=== PATIENT | female | born 1950 | race Caucasian/White ===

== ENCOUNTER 2018-04-08 11:40 | Outpatient (CLI) | payer BC | END 2018-04-08 11:41 | disposition home or self-care (01) | LOC: BICMAMMO 11:40 | PROVIDERS: ATTEND Obstetrics & Gynecology | DX: Z12.31 Encounter for screening mammogram for malignant neoplasm of breast (principal); R92.1 Mammographic calcification found on diagnostic imaging of breast | CPT/HCPCS: 77063; 77067 ==

== ENCOUNTER 2018-10-26 20:18 | Emergency (ER) | payer BC ==
--- NOTE | 2018-10-26 21:16 | RAD ---
RIGHT ANKLE: 10/26/18 Three views. HISTORY: Injury. Mild soft tissue swelling. No evidence of fracture seen at the ankle. There is enthesophyte from the posterior calcaneus. On the lateral view, there is question irregularity involving the cuboid at the tarsometatarsal joint . This is not adequately evaluated. If there is midfoot pain, recommend dedicated views of the foot. IMPRESSION: No evidence of ankle fracture. Other findings as above. POS: [facility]
--- NOTE | 2018-10-26 22:01 | RAD ---
RIGHT FOOT: 10/26/18 Three views. HISTORY: Injury. Small enthesophyte from the plantar calcaneus. Tarsals appear intact. Mild degenerative changes at th e tarsometatarsal joints and at the first MTP joint. The metatarsals and phalanges appear intact. IMPRESSION: No acute fracture identified. POS: [facility]
== END 2018-10-26 22:12 | disposition home or self-care (01) ==
LOC: SCSER 20:18
DX: S86.311A Strain of muscle(s) and tendon(s) of peroneal muscle group at lower leg level, right leg, initial encounter (principal); X50.9XXA Other and unspecified overexertion or strenuous movements or postures, initial encounter